=== PATIENT | female | born 1990 | race Two or more races ===

== ENCOUNTER 2024-11-09 12:15 | Emergency (ER) | payer SELFPAY ==
[2024-11-09] MEDS: fentaNYL 100 MCG/2 ML SDV IVPUSH ONE ×2 (12:51)
== END 2024-11-09 13:10 ==
LOC: FB.ED 12:15
DX: O20.0 Threatened abortion (principal); Z88.8 Allergy status to other drugs, medicaments and biological substances; N93.9 Abnormal uterine and vaginal bleeding, unspecified; F17.210 Nicotine dependence, cigarettes, uncomplicated; Z3A.12 12 weeks gestation of pregnancy
CPT/HCPCS: 96374; 99284; 99285-25; J3010